=== PATIENT | female | born 1995 | race Caucasian/White ===

== ENCOUNTER 2017-09-11 06:48 | Emergency (ER) | payer OTHER ==
[~2017-09-11] VITALS: Ht 167.6 cm; Wt 72.3 kg
[~2017-09-11 06:48] MED LIST: IRON PO; KEFLEX500 MG PO; LAMICTAL100 MG PO; MULTIVITAMIN PO; NAPROSYN500 MG PO; NORCO 5/3251 TABLET PO; VYVANSE40 MG PO; ZOLOFT100 MG PO; [UNRECOGNIZED DRUG - REMARK] PO
[2017-09-11 07:29] LABS: HEMATOCRIT 40.2 % (36.0-46.0); MCH 29.1 PG (29.0-34.0); MCHC 32.1 G/DL (30.0-36.0); MCV 90.5 FL (83-99); MEAN PLAT.VOLUME 10.9 uM^3 (9.5-12.4); PLATELET COUNT 218 K/uL (156-360); RBC DIS.WIDTH-CV 12.7 % (11.8-14.6); RBC DIS.WIDTH-SD 42.2 % (39-53); RED BLOOD COUNT 4.44 M/uL (3.80-5.20); WHITE BLOOD COUNT 4.6 K/uL (4.1-10.2)
[2017-09-11 07:57] LABS: TROP-I INTERPRETATION NEGATIVE; TROPONIN-I < 0.01 ng/mL (0.0-0.30)
[2017-09-11 08:45] LABS: CHLORIDE 108 mEq/L (99-109); POTASSIUM 4.1 mEq/L (3.7-5.4); SODIUM 139 mEq/L (136-147)
[2017-09-11 08:47] LABS: GLUCOSE 101 mg/dL (70-99)
[2017-09-11 08:48] LABS: ANION GAP 8 MEQ/L (2-14)
[2017-09-11 08:50] LABS: GFR ESTIMATE (CALCULATED) > 59 mL/min/
[2017-09-11 08:51] LABS: UREA NITROGEN (BUN) 16 mg/dL (9-23)
[2017-09-11 09:34] VITALS: BP 150/89
== END 2017-09-11 09:35 | disposition home or self-care (01) ==
LOC: EME 06:48
DX: R07.89 Other chest pain (principal); R06.02 Shortness of breath; Z95.0 Presence of cardiac pacemaker
CPT/HCPCS: 71020; 80048; 84484; 85027; 85379; 93005; 99281; 99284

== ENCOUNTER 2017-11-22 22:31 | Emergency (ER) | payer OTHER ==
[~2017-11-22] VITALS: Ht 167.6 cm; Wt 69.5 kg
[2017-11-22 23:04] LABS: HEMATOCRIT 37.7 % (36.0-46.0); MCH 29.7 PG (29.0-34.0); MCHC 34.5 G/DL (30.0-36.0); MCV 86.3 FL (83-99); PLATELET COUNT 222 K/uL (156-360); RBC DIS.WIDTH-CV 12.8 % (11.8-14.6); RBC DIS.WIDTH-SD 40.5 % (39-53); RED BLOOD COUNT 4.37 M/uL (3.80-5.20); WHITE BLOOD COUNT 7.9 K/uL (4.1-10.2)
[2017-11-22 23:13] LABS: CHLORIDE 112 mEq/L (99-109); POTASSIUM 3.4 mEq/L (3.7-5.4); SODIUM 141 mEq/L (136-147)
[2017-11-22 23:15] LABS: GLUCOSE 122 mg/dL (70-99)
[2017-11-22 23:19] LABS: CREATININE 0.8 mg/dL (0.6-1.3); GFR ESTIMATE (CALCULATED) > 59 mL/min/; UREA NITROGEN (BUN) 16 mg/dL (9-23)
[2017-11-22 23:27] LABS: TROP-I INTERPRETATION NEGATIVE; TROPONIN-I < 0.01 ng/mL (0.0-0.30)
[2017-11-22 23:28] LABS: QUANTITATIVE HCG < 4.0 MIU/ML
[2017-11-23 00:24] LABS: TROP-I INTERPRETATION NEGATIVE; TROPONIN-I 0.02 ng/mL (0.0-0.30)
[2017-11-23 01:52] VITALS: BP 109/75
== END 2017-11-23 01:52 | disposition home or self-care (01) ==
LOC: EME 22:31
PROVIDERS: Emergency Medicine
DX: R07.89 Other chest pain (principal); R00.2 Palpitations; Z86.79 Personal history of other diseases of the circulatory system; R00.0 Tachycardia, unspecified; R94.31 Abnormal electrocardiogram [ECG] [EKG]; F90.9 Attention-deficit hyperactivity disorder, unspecified type; F32.9 Major depressive disorder, single episode, unspecified; Z95.0 Presence of cardiac pacemaker
CPT/HCPCS: 71046; 80048; 84484; 84702; 85027; 85379; 93005; 99281; 99285